=== PATIENT | female | born 2000 | race Caucasian/White ===

== ENCOUNTER 2022-02-17 12:27 | Emergency (ER) | payer MEDICAID ==
[~2022-02-17] VITALS: Ht 165.1 cm; Wt 92.1 kg
[2022-02-17 12:29] VITALS: BP 116/67
--- NOTE | 2022-02-17 12:41 | NUR ---
BIB SELF C/O 10/01 RIGHT EAR/JAW PAIN X 3 DAYS. DENIES TRAUMA/INJURY.
[2022-02-17] MEDS ORDERED: IBUP-2213 PO (13:10)
[2022-02-17] MEDS ORDERED: OFLO5SOL27 RIGHT EAR (13:10)
[2022-02-17 13:34] VITALS: BP 116/67
--- NOTE | 2022-02-17 13:35 | NUR ---
Patient discharged with v/s stable. Written and verbal after care instructions given and explained. Patient alert, oriented and verbalized understanding of instructions. Ambulatory with steady gait. All questions addressed prior to discharge. ID band removed. Patient advised to follow up with PMD. Rx of ibuprofen, floxin ot (sent) given. Patient educated on indication of medication including possible reaction and side effects. Opportunity to ask questions provided and answered.
== END 2022-02-17 13:35 | disposition home or self-care (01) ==
LOC: MED 12:27
DX: H60.91 Unspecified otitis externa, right ear (principal); Z79.899 Other long term (current) drug therapy
CPT/HCPCS: 99283

== ENCOUNTER 2022-08-23 14:56 | Emergency (ER) | payer MEDICAID, OTHER ==
[~2022-08-23] VITALS: Ht 165.1 cm; Wt 90.7 kg
[~2022-08-23 14:56] MED LIST: IBUP-2213 PO; OFLO5SOL27 RIGHT EAR
[2022-08-23 15:10] VITALS: BP 137/79; PULSE 83; RESP 18; TEMP 98.3; O2SAT 98
[2022-08-23] MEDS ORDERED: OFLO5SOL27 RIGHT EAR ×2 (16:10→19:18)
[2022-08-23] MEDS ORDERED: AMOX875T3 PO ×2 (16:10→19:18)
[2022-08-23 16:22] VITALS: BP 137/79; PULSE 83; RESP 18; TEMP 98.3; O2SAT 98
--- NOTE | 2022-08-23 16:25 | NUR ---
DPatient discharged with v/s stable. Written and verbal after care instructions given and explained. Patient alert, oriented and verbalized understanding of instructions. Ambulatory with steady gait. All questions addressed prior to discharge. ID band removed. Patient advised to follow up with PMD. Rx of AMOXICILLIN, OFLOXACIN given. Patient educated on indication of medication including possible reaction and side effects. Opportunity to ask questions provided and answered.
== END 2022-08-23 16:26 | disposition home or self-care (01) ==
LOC: MED 14:56
DX: H66.91 Otitis media, unspecified, right ear (principal); H60.91 Unspecified otitis externa, right ear; H72.91 Unspecified perforation of tympanic membrane, right ear; Z79.2 Long term (current) use of antibiotics; Z79.1 Long term (current) use of non-steroidal anti-inflammatories (NSAID)
CPT/HCPCS: 99283